=== PATIENT | male | born 1945 | race Caucasian/White ===

== ENCOUNTER 2017-08-04 08:59 | Inpatient (IN) | payer MEDICARE, BC ==
[2017-08-04 10:09] LABS: BUN/Creatinine Ratio 17.3 (8-20); Calcium 9.3 mg/dL (8.6-10.3); EGFR African American 97.2 (>60); EGFR Non-African American 75.6 (>60); Potassium 3.9 mmol/L (3.5-5.0)
[2017-08-04] MEDS ORDERED: Potassium Chlor TAB* 40MEQ X 1 PRN K LEVEL PO (10:19)
[2017-08-04] MEDS: Dofetilide CAP* 500 MCG PO SCH ×2 (10:59→21:21)
[2017-08-04 11:03] LABS: Magnesium 2.1 mg/dL (1.9-2.7)
[2017-08-04] MEDS: MOMETASONE BOTH NARES SCH (21:22)
[2017-08-04] MEDS ORDERED: Apixaban* 5 MG TAB PO ONE (22:00)
[2017-08-05 05:25] LABS: BUN/Creatinine Ratio 17.8 (8-20); Calcium 9.2 mg/dL (8.6-10.3); EGFR African American 107.3 (>60); EGFR Non-African American 83.4 (>60)
[2017-08-05] MEDS: Levothyroxine TAB* 75 MCG TAB PO SCH (06:25)
[2017-08-05 07:50] LABS: Magnesium 2.3 mg/dL (1.9-2.7)
[2017-08-05] MEDS ORDERED: Diltiazem CD CAP* 120 MG PO SCH (09:00)
[2017-08-05] MEDS ORDERED: Apixaban* 5 MG TAB PO SCH (09:00)
[2017-08-05] MEDS ORDERED: Naloxone* 0.4 MG/ML 1 ML VIAL ONE (09:03)
[2017-08-05] MEDS ORDERED: fentaNYL* 50 MCG/ML 2 ML VIAL (100 MCG VIAL) ONE (09:03)
[2017-08-05] MEDS ORDERED: Midazolam* 1 MG/ML 5 ML VIAL (5 MG) ONE (09:03)
[2017-08-05] MEDS ORDERED: Flumazenil* 0.1 MG/ML 5 ML MDV ONE (09:03)
[2017-08-05] MEDS: Dofetilide CAP* 500 MCG PO SCH ×2 (09:07→21:40)
[2017-08-05] MEDS ORDERED: Ondansetron INJ* 2 MG/ML VIAL ONE (09:29)
[2017-08-05] MEDS: Apixaban* 5 MG TAB PO SCH ×2 (11:19→21:08)
[2017-08-05] MEDS: OMEPRAZOLE 10 MG PO SCH (11:20)
--- NOTE | 2017-08-05 15:27 | CARD ---
CARDIOVERSION NOTE: DATE OF STUDY: 08/05/17 - ROOM #444 PROCEDURE: Cardioversion. INDICATION: Atrial fibrillation. HISTORY: The patient is a 71-year-old gentleman who is admitted to the hospital for Tikosyn initiation. The patient had 2 doses of Tikosyn yesterday and 1 dose today. The patient was still in atrial fibrillation. Cardioversion was recommended. PROCEDURE IN DETAIL: The patient was in a fasting state, informed consent had been obtained prior to the procedure. All labs had been reviewed. The patient was given 4 mg of Versed and 50 mcg of fentanyl for conscious sedation. The patient was cardioverted with 150 joules of synchronized biphasic energy. The patient converted to normal sinus rhythm. The patient tolerated the procedure well and had no complications. [id number]/[facility] #: [id number] MTDD
[2017-08-05] MEDS: MOMETASONE BOTH NARES SCH (21:08)
[2017-08-06] MEDS: Levothyroxine TAB* 75 MCG TAB PO SCH (06:23)
[2017-08-06 07:23] LABS: BUN/Creatinine Ratio 16.7 (8-20); EGFR African American 99.6 (>60); EGFR Non-African American 77.4 (>60); Potassium 3.9 mmol/L (3.5-5.0)
[2017-08-06 08:41] LABS: Magnesium 2.3 mg/dL (1.9-2.7)
[2017-08-06 09:39] VITALS: BP 135/71
[2017-08-06] MEDS: Dofetilide CAP* 500 MCG PO SCH (10:09)
[2017-08-06] MEDS: OMEPRAZOLE 10 MG PO SCH (10:09)
[2017-08-06] MEDS: Apixaban* 5 MG TAB PO SCH (10:09)
--- NOTE | 2017-08-07 05:10 | DS ---
CC: Dr. Sandeep Ennis; Ignacio Pena MD * DISCHARGE SUMMARY: DATE OF ADMISSION: 08/04/17 DATE OF DISCHARGE: 08/06/17 HISTORY OF PRESENT ILLNESS AND HOSPITAL COURSE: The patient is a 71-year-old gentleman with paroxysmal atrial fibrillation, followed by Dr. Ignacio Pena and Dr. Dillon in [place]. He has been more short of breath and in late February was found to be back in atrial fibrillation. The patient was admitted for elective initiation of Tikosyn. Tikosyn was loaded at 500 mcg b.i.d. without any problems of ventricular ectopy. The patient underwent electrical cardioversion yesterday with Dr. Pena and this morning had maintained a normal sinus rhythm. Today, the patient is unsure if he has in fact felt better in the normal rhythm , but is walking in the halls without any complaints. He denied orthopnea or PND. PHYSICAL EXAMINATION: On exam, the patient's blood pressure was 135/71. He was in sinus rhythm with a pulse of 70, atrial fibrillation and oxygen saturation 95% on room air. He is a tall, fit-appearing elder gentleman, lying at 30 degrees, in no distress. Psychologically, calm, pleasant. Neurologically , awake, alert, oriented to person, place, and time. Cranial Nerves II through XII intact. Grossly normal sensory and motor function. No deficits appreciated. Lungs are clear with good effort. No wheezes, rales, or rhonchi. Coronary: S1, S2. Regular without murmurs, rubs, or extra systole. Abdomen : Soft. Extremities: Free of edema. LABORATORY DATA/DIAGNOSTIC STUDIES: Sodium 138, potassium 3.9, chloride 103, bicarb 30, glucose 78, BUN 16, creatinine 0.96. ECGs done serially and his EKG on admission today showed normal sinus rhythm, 60 beats a minute with normal ST segments and corrected QT interval of 449 milliseconds. Telemetry monitoring, no ventricular ectopy. On the day of discharge, the patient was maintaining sinus rhythm, clinically feeling well, and the EKG interval is good for his current dose of Tikosyn. The patient was discharged on dofetilide 500 mcg b.i.d., Eliquis 5 mg b.i.d., Synthroid 75 mcg a day, mometasone furoate, omeprazole daily. The patient was also provided with information verbally and written about drug interactions with Tikosyn. He will follow up with Dr. Pena in the near future. [id number]/[facility] #: [id number] FARRAH
== END 2017-08-06 11:08 | disposition home or self-care (01) | DRG 310 ==
LOC: MEDTELE 08:59
PROVIDERS: ADMIT Specialist; ATTEND Specialist
PROC: 5A2204Z Restoration of Cardiac Rhythm, Single (ICD-10-PCS; principal; 2017-08-05 07:00)
DX: I48.0 Paroxysmal atrial fibrillation (principal); Z79.01 Long term (current) use of anticoagulants
CPT/HCPCS: 36415; 80048; 83735; 92960; 93005; 99156; A9270-GY; J2250; J2310; J2405; J3010

== ENCOUNTER 2020-11-20 10:31 | Inpatient (IN) ==
[2020-11-20] MEDS ORDERED: Midazolam 5 mg/5 ml VIAL 1 mg/ml 5 ml VIAL (5 mg) ONE (11:25)
[2020-11-20] MEDS ORDERED: nitroGLYCERIN DRIP 25,000 MCG/250 ML BTL ONE (11:25)
[2020-11-20] MEDS ORDERED: Heparin 2 UNITS/ML 1000 mls 2,000 ML IV ONE (11:25)
[2020-11-20] MEDS ORDERED: Heparin 1,000 UNIT/ML 10 ml (10,000 UNITS) CATHLAB/DIALYSIS ONE (11:25)
[2020-11-20] MEDS ORDERED: VERAPAMIL 2.5 MG/ML 2 ML VIAL ** 5 mg/2 ml ONE (11:25)
[2020-11-20] MEDS ORDERED: fentaNYL 100 mcg/2 ml 50 MCG/ML VIAL ONE (11:25)
[2020-11-20] MEDS ORDERED: Iohexol 350 (CONTRAST) 200 ML MDV IV ONE ×2 (11:26→11:55)
[2020-11-20] MEDS ORDERED: Lidocaine 1% VIAL 10 MG/ML VIAL ONE (11:26)
[2020-11-20] MEDS ORDERED: Bivalirudin 250 MG VIAL ONE (12:12)
[2020-11-20] MEDS ORDERED: NS 0.9% 1000 ml BAG 1,000 ML IV SCH (13:45)
[2020-11-21 05:13] LABS: ABS Basophils 0.1 10^3/ul (0-0.2); ABS Eosinophils 0.2 10^3/ul (0-0.6); ABS Lymphocytes 2.5 10^3/ul (1.0-4.8); ABS Monocytes 0.9 10^3/ul (0-0.8); ABS Neutrophils 6.1 10^3/ul (1.5-7.7); Eosinophil % 2.4 %; Hematocrit 43 % (42-52); Hemoglobin 14.4 g/dL (14.0-18.0); Lymphocyte % 25.4 %; Mean Corpuscular HGB Conc 34 g/dL (31-36); Mean Corpuscular Hemoglobin 31 pg (27-31); Mean Corpuscular Volume 93 fL (80-94); Nucleated Red Blood Cells % 0.1; Platelet Count 213 10^3/uL (150-450); Red Cell Distribution Width 14 % (10-15); White Blood Count 9.9 10^3/uL (3.5-10.8)
[2020-11-21 05:55] LABS: Albumin 3.7 g/dL (3.2-5.2); Albumin/Globulin Ratio 1.2 (1-3); BUN/Creatinine Ratio 13.1 (8-20); Calcium 8.9 mg/dL (8.6-10.3); EGFR African American 108.1 (>60); EGFR Non-African American 89.3 (>60); Globulin 3.2 g/dL (2-4); Potassium 4.1 mmol/L (3.5-5.0); Total Bilirubin 0.7 mg/dL (0.2-1.0); Total Protein 6.9 g/dL (6.4-8.9)
[2020-11-21 09:17] VITALS: BP 132/85
== END 2020-11-21 09:55 | disposition home or self-care (01) | DRG 247 ==
LOC: CHICATH 10:31 → ICU 13:37
PROVIDERS: ADMIT Specialist; ATTEND Specialist